=== PATIENT | male | born 1990 | race Caucasian/White ===

== ENCOUNTER 2023-10-29 08:55 | Emergency (ER) | payer OTHER ==
[~2023-10-29] VITALS: Ht 180.3 cm; Wt 113.9 kg
[2023-10-29 09:36] VITALS: BP 134/66; TEMP 98.7; O2SAT 100
== END 2023-10-29 09:36 | disposition home or self-care (01) ==
LOC: ER 09:09
DX: H11.32 Conjunctival hemorrhage, left eye (principal); F10.10 Alcohol abuse, uncomplicated; F19.10 Other psychoactive substance abuse, uncomplicated; Z88.0 Allergy status to penicillin; Z60.2 Problems related to living alone; Y09 Assault by unspecified means

== ENCOUNTER 2023-11-01 09:16 | Emergency (ER) | payer OTHER ==
[~2023-11-01] VITALS: Ht 180.3 cm; Wt 113.4 kg
[2023-11-01] MEDS ORDERED: PRED50TA PO (09:42)
[2023-11-01] MEDS ORDERED: CLIN300C12 PO (09:42)
[2023-11-01] MEDS ORDERED: predniSONE 20 MG TABLET ONE (10:18)
[2023-11-01] MEDS ORDERED: ACETAMINOPHEN ES 500 MG TABLET ONE (10:18)
[2023-11-01] MEDS: predniSONE 50 MG TABLET PO ONE (10:22)
[2023-11-01] MEDS: ACETAMINOPHEN ES 500 MG TABLET PO ONE (10:22)
[2023-11-01 10:23] VITALS: BP 131/76; TEMP 103.2; O2SAT 97
== END 2023-11-01 10:23 | disposition home or self-care (01) ==
LOC: ER 09:49
DX: J03.80 Acute tonsillitis due to other specified organisms (principal); B96.89 Other specified bacterial agents as the cause of diseases classified elsewhere; F19.10 Other psychoactive substance abuse, uncomplicated; Z88.0 Allergy status to penicillin; Z60.2 Problems related to living alone
CPT/HCPCS: 99283; 87070; 87880; J7512; 86403-TC

== ENCOUNTER 2024-05-21 11:15 | Emergency (ER) | payer OTHER ==
[~2024-05-21] VITALS: Ht 180.3 cm; Wt 115.7 kg
[~2024-05-21 11:15] MED LIST: CLIN300C12 PO; PRED50TA PO
[2024-05-21] MEDS ORDERED: dexaMETHasone SOD PHOSPHATE 1 ML ONE (12:13)
[2024-05-21] MEDS: dexaMETHasone SOD PHOSPHATE 10 MG/ML VIAL MC ONE (12:17)
[2024-05-21] MEDS ORDERED: AZIT500T4 PO (12:25)
[2024-05-21 12:29] VITALS: BP 139/66; TEMP 98.5; O2SAT 98
== END 2024-05-21 12:28 | disposition home or self-care (01) ==
LOC: ER 11:17
DX: J03.80 Acute tonsillitis due to other specified organisms (principal); B96.89 Other specified bacterial agents as the cause of diseases classified elsewhere; F19.10 Other psychoactive substance abuse, uncomplicated; Z79.52 Long term (current) use of systemic steroids; Z88.0 Allergy status to penicillin; Z60.2 Problems related to living alone
CPT/HCPCS: 99283; J1100

== ENCOUNTER 2024-07-23 11:48 | Emergency (ER) | payer OTHER ==
[~2024-07-23] VITALS: Ht 175.3 cm; Wt 117.9 kg
[~2024-07-23 11:48] MED LIST changes: +AZIT500T4 PO
[2024-07-23] MEDS: ACETAMINOPHEN 325 MG TABLET PO ONE (13:20)
[2024-07-23] MEDS ORDERED: ACETAMINOPHEN 325 MG TABLET ONE (13:25)
[2024-07-23 13:35] LABS: BASOPHILS % (AUTO) 0.7 % (0.0-2.0); EOSINOPHILS # (AUTO) 0.1 K/uL (0.0-0.7); EOSINOPHILS % (AUTO) 3.3 % (0.0-6.0); HEMATOCRIT 42 % (39-51); HEMOGLOBIN 13.8 g/dL (13.5-17.5); LYMPHOCYTES # (AUTO) 1.4 K/uL (0.8-4.8); MEAN CORPUSCULAR HEMOGLOBIN 28 PG (26.0-33.0); MEAN CORPUSCULAR HGB CONC 33 g/dl (31.0-36.0); MEAN CORPUSCULAR VOLUME 84 fL (80-96); MONOCYTES # (AUTO) 0.6 K/uL (0.1-1.30); MONOCYTES % (AUTO) 13.8 % (2.0-12.0); NEUTROPHILS # (AUTO) 2.1 K/uL (1.8-8.9); NEUTROPHILS % (AUTO) 49.2 % (43.0-81.0); PLATELET COUNT (AUTO) 173 K/uL (150-450); RED BLOOD CELL COUNT(AUTO) 5.01 MIL/uL (4.5-6.0); RED CELL DISTRIBUTION WIDTH 15.3 % (11.5-15.0); WHITE BLOOD COUNT (AUTO) 4.3 K/uL (4.3-11.0)
[2024-07-23 13:53] LABS: CALCIUM, SERUM 9.1 mg/dL (8.5-10.1); CREATININE 1.1 mg/dL (0.6-1.3); POTASSIUM 4.3 mmol/L (3.5-5.1)
[2024-07-23] MEDS ORDERED: ACET325T53 PO (14:36)
[2024-07-23] MEDS ORDERED: IBUP-1955 PO (14:36)
[2024-07-23 15:01] VITALS: BP 122/77; TEMP 98.2; O2SAT 97
== END 2024-07-23 15:01 | disposition home or self-care (01) ==
LOC: ER 11:53
DX: S76.011A Strain of muscle, fascia and tendon of right hip, initial encounter (principal); S50.12XA Contusion of left forearm, initial encounter; M25.551 Pain in right hip; M79.632 Pain in left forearm; M54.2 Cervicalgia; Z79.52 Long term (current) use of systemic steroids; Z60.2 Problems related to living alone; Z88.0 Allergy status to penicillin; V47.5XXA Car driver injured in collision with fixed or stationary object in traffic accident, initial encounter; Y93.89 Activity, other specified; Y92.488 Other paved roadways as the place of occurrence of the external cause; Y99.8 Other external cause status
CPT/HCPCS: 36415; 71045-TC; 72190-TC; 73080-TC; 73090-TC; 73110; 80048-TC; 85025-TC

== ENCOUNTER 2024-12-17 08:05 | Emergency (ER) | payer MEDICAID, OTHER ==
[~2024-12-17] VITALS: Ht 180.3 cm; Wt 122.5 kg
[~2024-12-17 08:05] MED LIST changes: +ACET325T53 PO; +IBUP-1955 PO
[2024-12-17 08:13] VITALS: BP 118/81; TEMP 97.9; O2SAT 98
[2024-12-17] MEDS ORDERED: KETOROLAC TROMETHAMINE 15 MG/ML VIAL ONE (09:00)
[2024-12-17] MEDS ORDERED: dexaMETHasone SOD PHOSPHATE 1 ML ONE (09:00)
[2024-12-17] MEDS ORDERED: CLIN300C12 PO (09:02)
[2024-12-17] MEDS: dexaMETHasone SOD PHOSPHATE 10 MG/ML VIAL IM ONE (09:09)
[2024-12-17] MEDS: KETOROLAC TROMETHAMINE 15 MG/ML VIAL IM ONE (09:10)
[2024-12-17 09:47] LABS: MONOTEST NEGATIVE (NEGATIVE)
== END 2024-12-17 09:26 | disposition home or self-care (01) ==
LOC: ER 08:08
DX: J03.90 Acute tonsillitis, unspecified (principal); Z79.52 Long term (current) use of systemic steroids; Z88.0 Allergy status to penicillin; Z60.2 Problems related to living alone; Z79.899 Other long term (current) drug therapy
CPT/HCPCS: 99284; 96372 ×2; 86308; 36415; 87880; J1885; J1100; 86403-TC